=== PATIENT | female | born 1930 | race African-American/Black ===

== ENCOUNTER 2019-01-31 10:25 | Outpatient (CLI) | payer MEDICARE ==
--- NOTE | 2019-01-31 13:14 | Cat Scan Report ---
CT ABDOMEN AND PELVIS WITHOUT CONTRAST HISTORY: PELVIC PAIN/RECTAL MASS. COMPARISON: None. TECHNIQUE: CT images of the abdomen and pelvis were obtained without administration of intravenous co ntrast. Oral contrast was utilized. All CT scans at this location are performed using CT dose reducti on for ALARA by means of automated exposure control. FINDINGS: Limited evaluation of the lung bases demonstrates a small hiatal hernia. Located within the right perianal region is an asymmetric 2.1 x 1.9 cm isodense soft tissue structure . This is best seen on axial image 171. It is partially imaged and the most inferior aspect is felt t o not be included on the scan. This appearance is nonspecific, but may represent an area of perianal infection or mass. No central hypodense component to suggest presence of fluid or abscess. The liver, kidneys, spleen, pancreas, adrenal glands, and gallbladder are unremarkable. Gastrointesti nal tract shows no evidence of pathologic distention. There are no pathologically enlarged lymph node s. No free intraperitoneal gas or fluid. The appendix is not identified, but there are no inflammatory changes seen in the region of the cecum . Urinary bladder is collapsed and is poorly evaluated. The uterus and adnexa are unremarkable, aside from a few calcifications along the periphery of the ut erine fundus. 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 Scattered atherosclerotic calcification noted throughout the distal aorta and its ma katelin branch vessels There is an age-indeterminate anterior compression fracture at L2 vertebral body where there is appro ximately 25% loss in anterior vertebral body height. Multilevel areas of degenerative change are note d in the lower lumbar disc spaces with vacuum phenomenon seen at L2/L3, L4/L5, and L5/S1. The lack of intravenous limits evaluation of solid parenchymal organs, vasculature, and gastrointesti nal tract. IMPRESSION: Located within the right perianal region is an asymmetric 2.1 x 1.9 cm isodense soft tissue structure . This is not entirely included on this exam and the inferior portion of this is not imaged. The appe arance is nonspecific, but may represent an area of perianal infection versus mass. No central fluid component is identified to suggest the presence of abscess. Recommend clinical correlation with asses sment of visualization and symptoms. If clinically indicated, a follow-up CT through the [facility] to include more inferior portions may be considered. If a follow-up CT is performed, it would be best to wait several hours for the contrast to reach the rectum. Unremarkable appearance of the uterine and adnexa, side from a few calcifications within the peripher y of the uterine fundus. Age-indeterminate anterior compression fracture at L2 vertebral body where there is approximately 25% loss in anterior vertebral body height. Correlate clinically with any recent trauma. If indicated, a n MRI of the lumbar spine the considered. 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 Small hiatal hernia. Signer Name: Shubham Carl MD Signed: 01/31/2019 1:09 PM Workstation Name: [id number]
== END 2019-01-31 10:26 | disposition home or self-care (01) ==
LOC: CT 10:25
PROVIDERS: ATTEND Family Medicine
DX: K44.9 Diaphragmatic hernia without obstruction or gangrene (principal); I71.4 Abdominal aortic aneurysm, without rupture
CPT/HCPCS: 74176

== ENCOUNTER 2019-04-22 18:13 | Emergency (ER) | payer MEDICARE ==
--- NOTE | 2019-04-22 18:59 | Event Note ---
ED Screening Note Date of service: 04/22/19 Time: 18:57 ED Screening Note: 88 y o female presents with chills, gray, body aches, no apetite This initial assessment/diagnostic orders/clinical plan/treatment(s) is/are subject to change based on patients health status, clinical progression and re-assessment by fellow clinical providers in the ED. Further treatment and workup at subsequent clinical providers discretion. Patient/guardian urged not to elope from the ED as their condition may be serious if not clinically assessed and managed. Initial orders include: labs main side eval
[2019-04-22 19:24] LABS: Basophils % (Auto) 0.6 % (0.0-1.8); Eosinophils # (Auto) 0.1 K/mm3 (0.0-0.4); Eosinophils % (Auto) 1.1 % (0.0-4.3); Hematocrit 38.6 % (30.3-42.9); Lymphocytes # (Auto) 1.8 K/mm3 (1.2-5.4); Lymphocytes % (Auto) 34.2 % (13.4-35.0); Mean Corpuscular HGB Conc 34 % (30-34); Mean Corpuscular Volume 88 fl (79-97); Monocytes # (Auto) 0.6 K/mm3 (0.0-0.8); Monocytes % (Auto) 10.9 % (0.0-7.3); Platelet Count 164 K/mm3 (140-440); Red Blood Count 4.37 M/mm3 (3.65-5.03)
[2019-04-22 19:44] LABS: Calcium 9.1 mg/dL (8.4-10.2)
[2019-04-23] MEDS ORDERED: LIDOCAINE (4%) 40 MG/ML TOPICAL SOLN 50 ML BOTTLE TP ONE (00:34)
[2019-04-23] MEDS ORDERED: diphenhydrAMINE 50 MG/ML VIAL IV ONE (00:34)
[2019-04-23] MEDS ORDERED: METOCLOPRAMIDE 10 MG/2 ML INJ IV ONE (00:34)
[2019-04-23] MEDS ORDERED: ACETAMINOPHEN 500 MG TAB PO ONE (00:34)
--- NOTE | 2019-04-23 00:35 | Emergency Department Report ---
ED General Adult HPI - General Chief complaint: Headache Stated complaint: HEADACHE, DEHYDRATED, HOT AN COLD Time Seen by Provider: 04/23/19 00:13 Source: patient, family, RN notes reviewed Mode of arrival: Ambulatory Limitations: No Limitations - History of Present Illness Initial comments: The patient is an 88-year-old female. She is not known to myself previously. She has a documented history of dementia, and in the past, has seen neurology, Dr. Keith She also has seen Dr. Meyers. She is accompanied by her granddaughter, and she indicates that she would like the granddaughter to translate for her. She also has a history of hypertension. The patient presents to the ER today with a complaint of frontal and bitemporal headache, present for 3 to 4 days. She also describes chills, but no fever, positive nasal congestion, no loss of vision, no jaw claudication. There is no neck pain or neck stiffness. She has not vomited, there is a chronic cough, there were no irritative or obstructive urinary symptoms. She reports that she has not taken any vqnn-[id number]-[id number] medications for her headache. The headache is not described as sudden or thunderclap in nature. Headache is not described as maximal intensity. The patient's granddaughter indicates that the patient gets occasional headaches, but she and the patient are not sure how this headache compares to prior headaches. Her granddaughter does indicate that the patient has occasional "memory issues." -: Gradual, days(s) Location: head Radiation: other Quality: other Consistency: other Improves with: other Worsens with: other Associated Symptoms: other - Related Data Previous Rx's Medication Instructions Recorded Last Taken Type Acetaminophen [Non-Aspirin Extra 500 mg PO Q6HR PRN #30 tablet 04/23/19 Unknown Rx Strength] Fluticasone [Flonase] 1 spray NS QDAY #1 bottle 04/23/19 Unknown Rx Ibuprofen [Motrin] 400 mg PO Q6H PRN #30 tablet 04/23/19 Unknown Rx Allergies Allergy/AdvReac Type Severity Reaction Status Date / Time No Known Allergies Allergy Unverified 01/31/19 10:25 ED Review of Systems ROS: Stated complaint: HEADACHE, DEHYDRATED, HOT AN COLD Other details as noted in HPI Constitutional: chills. denies: fever ENT: congestion. denies: ear pain, throat pain, dental pain, epistaxis Respiratory: cough Cardiovascular: denies: syncope Genitourinary: denies: dysuria Neurological: headache. denies: weakness Psychiatric: as per HPI Hematological/Lymphatic: as per HPI ED Past Medical Hx - Past Medical History Previous Medical History?: Yes Hx Hypertension: Yes - Surgical History Past Surgical History?: No - Medications Home Medications: Home Medications Medication Instructions Recorded Confirmed Last Taken Type Acetaminophen [Non-Aspirin Extra 500 mg PO Q6HR PRN #30 tablet 04/23/19 Unknown Rx Strength] Fluticasone [Flonase] 1 spray NS QDAY #1 bottle 04/23/19 Unknown Rx Ibuprofen [Motrin] 400 mg PO Q6H PRN #30 tablet 04/23/19 Unknown Rx ED Physical Exam - General Limitations: Language Barrier General appearance: alert, in no apparent distress - Head Head exam: Present: atraumatic, normocephalic - Eye Eye exam: Present: normal appearance, PERRL, EOMI, other (Visual acuity is intact to finger counting and color perception at a close distance. The right cornea has evidence of cataract surgery. There is no direct or consensual photophobia. No cloudy corneas are appreciated. There is no temporal tenderness.). Absent: nystagmus - ENT ENT exam: Present: normal exam, normal orophraynx, mucous membranes moist, TM's normal bilaterally, normal external ear exam - Neck Neck exam: Present: normal inspection, full ROM. Absent: tenderness, meningismus - Respiratory Respiratory exam: Present: normal lung sounds bilaterally. Absent: respiratory distress - Cardiovascular Cardiovascular Exam: Present: regular rate, normal rhythm, normal heart sounds. Absent: bradycardia, tachycardia, irregular rhythm, systolic murmur, diastolic murmur, rubs, gallop - GI/Abdominal GI/Abdominal exam: Present: soft, normal bowel sounds. Absent: distended, ten derness, guarding, rebound, rigid, pulsatile mass - Extremities Exam Extremities exam: Present: normal inspection, full ROM, other (2+ pulses noted in the bilateral upper and lower extremities. There is no palpable cord. negative Homans sign. Muscular compartments are soft. The pelvis is stable.). Absent: calf tenderness - Back Exam Back exam: Present: normal inspection, full ROM. Absent: tenderness, CVA tenderness (R), CVA tenderness (L), paraspinal tenderness, vertebral tenderness - Neurological Exam Neurological exam: Present: alert, normal gait, other (There is no facial droop. The tongue is midline. Extraocular movements are intact bilaterally. There is 5 out of 5 strength in bilateral upper and lower extremities. Sensation is intact to light touch bilateral upper and lower extremities. There is no past- pointing. There is no pronator drift. There is normal [id number]. There is a normal gait.). Absent: motor sensory deficit - Psychiatric Psychiatric exam: Present: normal affect, normal mood - Skin Skin exam: Present: warm, dry, intact, normal color. Absent: rash ED Course Vital Signs 04/22/19 04/23/19 04/23/19 18:58 01:06 01:08 Temperature 98.0 F 98.1 F Pulse Rate 80 82 Respiratory 18 16 16 Rate Blood Pressure 107/85 Blood Pressure 126/70 [Right] O2 Sat by Pulse 97 97 97 Oximetry ED Medical Decision Making - Lab Data Result diagrams: 04/22/19 19:11 04/22/19 19:11 Vital Signs 04/22/19 04/23/19 04/23/19 18:58 01:06 01:08 Temperature 98.0 F 98.1 F Pulse Rate 80 82 Respiratory 18 16 16 Rate Blood Pressure 107/85 Blood Pressure 126/70 [Right] O2 Sat by Pulse 97 97 97 Oximetry Lab Results 04/22/19 04/22/19 04/23/19 Range/Units 19:11 19:11 00:34 WBC 5.4 (4.5-11.0) K/mm3 RBC 4.37 (3.65-5.03) M/mm3 Hgb 13.0 (10.1-14.3) gm/dl Hct 38.6 (30.3-42.9) % MCV 88 (79-97) fl MCH 30 (28-32) pg MCHC 34 (30-34) % RDW 14.0 (13.2-15.2) % Plt Count 164 (140-440) K/mm3 Lymph % (Auto) 34.2 (13.4-35.0) % [place] % (Auto) 10.9 H (0.0-7.3) % Eos % (Auto) 1.1 (0.0-4.3) % Baso % (Auto) 0.6 (0.0-1.8) % Lymph # 1.8 (1.2-5.4) K/mm3 [place] # 0.6 (0.0-0.8) K/mm3 Eos # 0.1 (0.0-0.4) K/mm3 Baso # 0.0 (0.0-0.1) K/mm3 Seg Neutrophils % 53.2 (40.0-70.0) % Seg Neutrophils # 2.8 (1.8-7.7) K/mm3 ESR 21 (0-20) mm/Hr Sodium 136 L (137-145) mmol/L Potassium 3.9 (3.6-5.0) mmol/L Chloride 100.6 (98-107) mmol/L Carbon Dioxide 22 (22-30) mmol/L Anion Gap 17 mmol/L BUN 17 (7-17) mg/dL Creatinine 0.9 (0.7-1.2) mg/dL Estimated GFR 59 ml/min BUN/Creatinine Ratio 19 % Glucose 110 H (65-100) mg/dL Calcium 9.1 (8.4-10.2) mg/dL Total Bilirubin 0.20 (0.1-1.2) mg/dL AST 18 (5-40) units/L ALT 10 (7-56) units/L Alkaline Phosphatase 78 (35-129) units/L Total Creatine Kinase (30-135) units/L Total Protein 7.3 (6.3-8.2) g/dL Albumin 4.0 (3.9-5) g/dL Albumin/Globulin Ratio 1.2 % Influenza A (Rapid) (Negative) Influenza B (Rapid) (Negative) Group A Strep Rapid (Negative) 04/23/19 04/23/19 Range/Units 00:35 Unknown WBC (4.5-11.0) K/mm3 RBC (3.65-5.03) M/mm3 Hgb (10.1-14.3) gm/dl Hct (30.3-42.9) % MCV (79-97) fl MCH (28-32) pg MCHC (30-34) % RDW (13.2-15.2) % Plt Count (140-440) K/mm3 Lymph % (Auto) (13.4-35.0) % [place] % (Auto) (0.0-7.3) % Eos % (Auto) (0.0-4.3) % Baso % (Auto) (0.0-1.8) % Lymph # (1.2-5.4) K/mm3 [place] # (0.0-0.8) K/mm3 Eos # (0.0-0.4) K/mm3 Baso # (0.0-0.1) K/mm3 Seg Neutrophils % (40.0-70.0) % Seg Neutrophils # (1.8-7.7) K/mm3 ESR (0-20) mm/Hr Sodium (137-145) mmol/L Potassium (3.6-5.0) mmol/L Chloride (98-107) mmol/L Carbon Dioxide (22-30) mmol/L Anion Gap mmol/L BUN (7-17) mg/dL Creatinine (0.7-1.2) mg/dL Estimated GFR ml/min BUN/Creatinine Ratio % Glucose (65-100) mg/dL Calcium (8.4-10.2) mg/dL Total Bilirubin (0.1-1.2) mg/dL AST (5-40) units/L ALT (7-56) units/L Alkaline Phosphatase (35-129) units/L Total Creatine Kinase 67 (30-135) units/L Total Protein (6.3-8.2) g/dL Albumin (3.9-5) g/dL Albumin/Globulin Ratio % Influenza A (Rapid) Negative (Negative) Influenza B (Rapid) Negative (Negative) Group A Strep Rapid Negative (Negative) - Radiology Data Radiology results: report reviewed, image reviewed Print Report Referring Physician: THAO MONROE Patient Name: LEXII JEAN Date of : 1930 Sex: Female Report Date: 2019-04-23 Report Status: Finalized Findings [facility] [address] [place] [address] Cat Scan Report Signed Patient: LEXII JEAN MR#: [id number] : 1930 Acct:[id number] Age/Sex: 88 / F ADM Date: 04/22/19 Loc: ED Attending Dr: Ordering Physician: THAO MONROE MD Date of Service: 04/23/19 Procedure(s): CT head/brain wo con Accession Number(s): [id number] cc: THAO MONROE MD CT head/brain wo con INDICATION / CLINICAL INFORMATION: Sub acute headache with chills and hot flashes since Sunday. TECHNIQUE: Axial CT imaging of the brain was obtained without contrast. Coronal and sagittal reformatted imaging obtained and reviewed. All CT scans at this location are performed using CT dose reduction for ALARA by means of automated exposure control. COMPARISON: None available. FINDINGS: No intracranial hemorrhage, mass, or midline shift noted. No extra-axial fluid collection or findings to suggest acute territorial infarct. Ventricular system and basilar cisterns are unremarkable. There is moderate cerebral and cerebellar atrophy, appropriate for the patient's advanced age. Visualized paranasal sinuses demonstrate opacification of a posterior right ethmoid air cell. There is some mucosal thickening of a posterior left ethmoid air cell. The remainder of the sinuses and mastoid air cells appear grossly well aerated. No calvarial abnormality. IMPRESSION: 1. Probable ethmoid sinusitis. 2. No acute intracranial abnormality. Age-related changes. Signer Name: Shadia Cunningham MD Signed: 04/23/2019 1:31 AM Workstation Name: [id number] Transcribed By: JR Dictated By: Shadia Cunningham MD Electronically Authenticated By: Shadia Cunningham MD Signed Date/Time: 04/23/19130 DD/ 7 - Medical Decision Making Differential diagnosis, including but not limited to: Migraine headache, tension headache, cluster headache, sinusitis, intracranial lesion, temporal arteritis Assessment and plan: 88-year-old female with frontal and bitemporal headache, no visual loss, no jaw claudication, unremarkable sedimentation rate, unremarkable ocular exam, GCS 15, walking with a steady gait, unremarkable neurologic exam, with no neck pain, no neck stiffness, unremarkable laboratory studies, CAT scan of the brain suggesting possible ethmoid sinusitis, negative flu and strep. Patient treated supportively and symptomatically and feels improved. She has been observed in this department for hours without clinical decompensation. She is accompanied by her granddaughter, who indicates multiple times at the patient appears to be at her baseline. During my exam and evaluations, patient sitting comfortably in her stretcher, moving her neck back and forth without difficulty, without meningeal signs. She is reliable to follow-up with her outpatient primary care doctor, we will treat supportively and symptomatically, discussed this with the granddaughter who translated, return precautions are reviewed. Critical care attestation.: If time is entered above; I have spent that time in minutes in the direct care of this critically ill patient, excluding procedure time. ED Disposition Clinical Impression: Sinus headache Disposition: DC- TO HOME OR SELFCARE Is pt being admited?: No Does the pt Need Aspirin: No Condition: Stable Additional Instructions: Advance diet as tolerated. Take the prescribed medications as needed and directed. Patient may use [id number]-[id number] nasal saline/sea salt spray as often as as needed, in combination with the aforementioned prescribed medications. We recommend follow-up with your physician within 7 days for repeat checkup and/or evaluation. Please return to the emergency room right away with new, worsened or different symptoms, symptoms not present on the initial emergency room evaluation, projectile vomiting, change in mental status, confusion, inability to tolerate liquid feeds, or any new concerning symptoms. Referrals: JOSE DANIEL KEITH MD [Referring] - 7-10 days QUINN ECHEVARRIA MD [Staff Physician] - 7-10 days
[2019-04-23 01:07] VITALS: BP 126/70
--- NOTE | 2019-04-23 01:36 | Cat Scan Report ---
CT head/brain wo con INDICATION / CLINICAL INFORMATION: Sub acute headache with chills and hot flashes since Sunday. TECHNIQUE: Axial CT imaging of the brain was obtained without contrast. Coronal and sagittal reformatted imaging obtained and reviewed. All CT scans at this location are performed using CT dose reduction for ALAR A by means of automated exposure control. COMPARISON: None available. FINDINGS: No intracranial hemorrhage, mass, or midline shift noted. No extra-axial fluid collection or findings to suggest acute territorial infarct. Ventricular system and basilar cisterns are unremarkable. Ther e is moderate cerebral and cerebellar atrophy, appropriate for the patient's advanced age. Visualized paranasal sinuses demonstrate opacification of a posterior right ethmoid air cell. There i s some mucosal thickening of a posterior left ethmoid air cell. The remainder of the sinuses and mas toid air cells appear grossly well aerated. No calvarial abnormality. IMPRESSION: 1. Probable ethmoid sinusitis. 2. No acute intracranial abnormality. Age-related changes. Signer Name: Shadia Cunningham MD Signed: 04/23/2019 1:31 AM Workstation Name: [id number]
== END 2019-04-23 02:10 | disposition home or self-care (01) ==
LOC: ED 18:13
DX: R51 Headache (principal); I10 Essential (primary) hypertension; Z79.1 Long term (current) use of non-steroidal anti-inflammatories (NSAID); Z79.899 Other long term (current) drug therapy
CPT/HCPCS: 36415; 70450; 80053; 82550; 85025; 85652; 87116; 87400; 87430; 96374; 96375; 99284; J1200; J2765